=== PATIENT | male | born 1985 | race Caucasian/White ===

== ENCOUNTER 2017-04-08 13:01 | Emergency (ER) | payer OTHER ==
[~2017-04-08] VITALS: Ht 165.1 cm; Wt 89.0 kg
[2017-04-08 13:11] VITALS: Ht 165.1 cm; Wt 89.0 kg
== END 2017-04-08 18:11 | disposition left against medical advice (07) ==
LOC: E/R 13:01
DX: Z53.21 Procedure and treatment not carried out due to patient leaving prior to being seen by health care provider (principal)